=== PATIENT | female | born 1950 | race Caucasian/White ===

== ENCOUNTER 2017-02-08 10:18 | Emergency (ER) | payer MEDICARE, OTHER ==
[~2017-02-08] VITALS: Ht 157.5 cm; Wt 78.0 kg
[~2017-02-08 10:18] MED LIST: ALEN70TA30 PO; ASPI81TA3 PO; BENA10TA48 PO; MEVA40 PO; [UNRECOGNIZED DRUG - CODE] PO
[2017-02-08 10:23] VITALS: Ht 157.5 cm; Wt 78.0 kg
[2017-02-08] MEDS ORDERED: HYDROCODONE/APAP (10/325) TAB PO ONE (12:00)
--- NOTE | 2017-02-08 12:47 | RADRPT ---
PROCEDURE: Xray left ribs. CLINICAL INDICATION: Trauma due to a fall. Left rib pain. TECHNIQUE: Three views of the left ribs. Frontal and obliques. COMPARISON: None available FINDINGS: The osseous structures and surrounding soft tissues of the left rib cage are intact. No acute fract ure is seen. No radiopaque foreign body is identified. There are degenerative changes of the spine. IMPRESSION: 1. Degenerative changes of the spine. 2. Otherwise unremarkable left ribs x-ray series. RPTAT: QQ .Farshad Donaldson MD, MD Date Time Electronically viewed and signed by .Farshad Donaldson MD, on 02/08/2017 12:46 .R/
--- NOTE | 2017-02-08 13:03 | RADRPT ---
PROCEDURE: knee x-ray CLINICAL INDICATION: Knee pain. TECHNIQUE: AP, lateral and oblique tunnel views of the right knee were obtained. COMPARISON: None FINDINGS: No evidence of fracture or dislocation. Medial and lateral meniscal calcification compatible with ch ondrocalcinosis The medial, lateral, as well as patellofemoral knee joint compartments are well maintained. No joint effusion. Mild prepatellar soft tissue prominence. IMPRESSION: 1. No fracture or dislocation. Meniscal chondrocalcinosis. 2. No joint effusion. 3. Mild prepatellar soft tissue prominence suggestive of soft tissue swelling. Correlate with direc t inspection. RPTAT:AAJJ Physician Wes Date Time Electronically viewed and signed by Physician Wes on 02/08/2017 13:03 MANPREET/
--- NOTE | 2017-02-08 13:03 | RADRPT ---
PROCEDURE: XR Chest. CLINICAL INDICATION: Trauma . Chest pain TECHNIQUE: Single frontal chest x-ray. COMPARISON: 09/03/2015 FINDINGS: The lungs are clear of acute infiltrates, edema, effusions, or masses. Calcific atherosclerosis of t he aorta is present.. The cardiomediastinal silhouette is unremarkable. The osseous structures are intact. Fixation hardware noted in the right humeral head. IMPRESSION: No acute cardiopulmonary disease. RPTAT: GG .Terrence Bailey MD, MD Date Time Electronically viewed and signed by .Terrence Bailey MD, MD on 02/08/2017 13:03 .L/
[2017-02-08] MEDS ORDERED: IBUP800T25 PO (13:16)
[2017-02-08] MEDS ORDERED: HYDR-902 PO (13:16)
[2017-02-08] MEDS ORDERED: ONDANSETRON (ODT) 4 MG TAB ODT STA (13:23)
--- NOTE | 2017-02-08 13:27 | ERD ---
ER Documentation Chief Complaint Date/Time DATE: 02/08/17 TIME: 13:17 Chief Complaint FELL FROM CHAIR, HAS RIB PAIN AND LEFT KNEE PAIN HPI In her closet when the chair fell and she landed on her left knee and her left rib cage hit the arm of the chair. This happened yesterday. The pain is sharp worse with movement better with rest no loss of consciousness denies any headache neck ache shortness of breath abdominal pain vomiting dizziness pelvic pain or other extremity pain. ROS All systems reviewed and are negative except as per history of present illness. Medications Home Meds Active Scripts Ibuprofen* (Motrin*) 800 Mg Tab, 800 MG PO Q6H Y for PAIN AND OR ELEVATED TEMP, #30 TAB Prov:KAI MILAN DO 02/08/17 Hydrocodone/Acetaminophen ([place]han 10-325 Tablet) 1 Each Tablet, 1 TAB PO Q6H Y for PAIN, #20 TAB Prov:KAI MILAN. DO 02/08/17 Aspirin (Aspirin) 81 Mg Chew, 81 MG PO DAILY for 30 Days Prov:REANNA FINLEY [employer]T KNIFE FEEDER 10/28/14 Reported Medications Alendronate Sodium* (Fosamax*) 70 Mg Tablet, 70 MG PO Q7D, #4 TAB 09/03/15 Lovastatin (Lovastatin) 40 Mg Tablet, 40 MG PO HS, TAB 09/03/15 Benazepril Hcl* (Benazepril Hcl*) 10 Mg Tablet, 10 MG PO DAILY, #30 TAB 09/03/15 Multivits W-Ca,Fe,Other Min (Womens Multiple Vitamins) 1 Tab Tablet, 1 TAB PO DAILY 11/03/11 Allergies Allergies: Coded Allergies: No Known Allergies (Verified Allergy, Unknown, 09/03/15) PMhx/Soc History of Surgery: Yes (LEFT ELBOW, RIGHT SHOULDER, PROLAPSED UTERUS) Anesthesia Reaction: No Hx Neurological Disorder: Yes (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 Neck: Full range of motion. No meningismus, no lymphadenopathy. Resp: Clear to auscultation bilaterally, no wheezing, rhonchi, rales, there is tenderness to the left midaxillary rib cage around ribs 567 there is no crepitus Cardio: Regular rate and rhythm, no murmurs, S1 S2 present Abd: Soft, non tender x 4, non distended. Normal bowel sounds, no guarding or rebound, no pulsitile abdominal masses or bruits Skin: No petechiae or rashes, no ecchymosis , no maculopapular rash Back: No midline or flank tenderness Ext: No cyanosis, or edema, FROM x 4, normal inspection, neurovascularly intact x 4 tenderness to the left knee, full range of motion Neur: Awake and alert, STR 5/5 x 4, sensation intact x 4, no focal findings, cerebellum intact Psych: Normal Mood and Affect Results 24 hrs Current Medications Medications (Trade) Dose Ordered Sig/Maira Route PRN Reason Start Time Stop Time Status Last Admin Dose Admin Acetaminophen/ Hydrocodone Bitart (Doniphan (10/325)) 1 tab ONCE ONCE PO 02/08/17 12:00 02/08/17 12:01 DC 02/08/17 12:01 Procedures/MDM PROCEDURE: XR Chest. CLINICAL INDICATION: Trauma . Chest pain TECHNIQUE: Single frontal chest x-ray. COMPARISON: 09/03/2015 FINDINGS: The lungs are clear of acute infiltrates, edema, effusions, or masses. Calcific atherosclerosis of the aorta is present.. The cardiomediastinal silhouette is unremarkable. The osseous structures are intact. Fixation hardware noted in the right humeral head. IMPRESSION: No acute cardiopulmonary disease. RPTAT: GG .Terrence Bailey MD, MD Date Time Electronically viewed and signed by .Terrence Bailey MD, MD on 02/08/2017 13:03 .L/ CC: KAI MILAN DO PROCEDURE: knee x-ray CLINICAL INDICATION: Knee pain. TECHNIQUE: AP, lateral and oblique tunnel views of the right knee were obtained. COMPARISON: None FINDINGS: No evidence of fracture or dislocation. Medial and lateral meniscal calcification compatible with chondrocalcinosis The medial, lateral, as well as patellofemoral knee joint compartments are well maintained. No joint effusion. Mild prepatellar soft tissue prominence. IMPRESSION: 1. No fracture or dislocation. Meniscal chondrocalcinosis. 2. No joint effusion. 3. Mild prepatellar soft tissue prominence suggestive of soft tissue swelling. Correlate with direct inspection. RPTAT:AAJJ Physician Wes Date Time Electronically viewed and signed by Physician Wes on 02/08/2017 13:03 MANPREET/ CC: KAI MILAN DO PROCEDURE: Xray left ribs. CLINICAL INDICATION: Trauma due to a fall. Left rib pain. TECHNIQUE: Three views of the left ribs. Frontal and obliques. COMPARISON: None available FINDINGS: The osseous structures and surrounding soft tissues of the left rib cage are intact. No acute fracture is seen. No radiopaque foreign body is identified. There are degenerative changes of the spine. IMPRESSION: 1. Degenerative changes of the spine. 2. Otherwise unremarkable left ribs x-ray series. RPTAT: QQ .Farshad Donaldson MD, Date Time Electronically viewed and signed by .Farshad Donaldson MD, on 02/08/2017 12:46 .R/ CC: KAI MILAN DO Departure Diagnosis: Primary Impression: Contusion, knee Encounter type: initial encounter Laterality: unspecified laterality Qualified Code: S80.00XA - Contusion of knee, unspecified laterality, initial encounter Additional Impression: Rib injury Condition: Stable Patient Instructions: Rib Contusion KAI MILAN DO Feb 08, 2017 13:27
[2017-02-08] MEDS ORDERED: TRAM50TA2 PO (13:28)
[2017-02-08 13:42] VITALS: BP 124/65; PULSE 72; RESP 19; TEMP 98.3
== END 2017-02-08 13:42 | disposition home or self-care (01) ==
LOC: FTE 10:18
DX: S80.00XA Contusion of unspecified knee, initial encounter (principal); E11.9 Type 2 diabetes mellitus without complications; W07.XXXA Fall from chair, initial encounter; Z79.82 Long term (current) use of aspirin
CPT/HCPCS: 71010; 71100; 73562

== ENCOUNTER 2017-03-06 13:25 | Emergency (ER) | payer MEDICARE, OTHER ==
[~2017-03-06] VITALS: Ht 160 cm; Wt 79.0 kg
[~2017-03-06 13:25] MED LIST changes: +IBUP800T25 PO; +TRAM50TA2 PO
[2017-03-06 13:40] VITALS: Ht 160 cm; Wt 79.0 kg
[2017-03-06] MEDS ORDERED: KETOROLAC 30 MG INJ IV STA (15:09)
--- NOTE | 2017-03-06 15:20 | ERD ---
ER Documentation Chief Complaint Chief Complaint BACK PAIN, UPPER SINCE LAST NIGHT HPI 66 y/o female presents to the ED c/o acute onset of right flank pain last night. Pain is throbbing, 8/10, worsened by lateral rotation and cough. treatment attempted: Ibuprofen last night without improvement of his symptoms. The patient reports a fall a month ago. Denies limb weakness, numbness or incontinence. No urinary symptoms. no fever or chills ROS All systems reviewed and are negative except as per history of present illness. Medications Home Meds Active Scripts Ciprofloxacin Hcl* (Ciprofloxacin Hcl*) 500 Mg Tablet, 250 MG PO BID for 7 Days , TAB Prov:MILLER BOUDREAUX MD 03/06/17 Tramadol HCl (Tramadol HCl) 50 Mg Tablet, 50 MG PO Q6, #20 TAB Prov:KAI MILAN DO 02/08/17 Ibuprofen* (Motrin*) 800 Mg Tab, 800 MG PO Q6H Y for PAIN AND OR ELEVATED TEMP, #30 TAB Prov:KAI MILAN DO 02/08/17 Aspirin (Aspirin) 81 Mg Chew, 81 MG PO DAILY for 30 Days Prov:REANNA FINLEY NP 10/28/14 Reported Medications Alendronate Sodium* (Fosamax*) 70 Mg Tablet, 70 MG PO Q7D, #4 TAB 09/03/15 Lovastatin (Lovastatin) 40 Mg Tablet, 40 MG PO HS, TAB 09/03/15 Benazepril Hcl* (Benazepril Hcl*) 10 Mg Tablet, 10 MG PO DAILY, #30 TAB 09/03/15 Multivits W-Ca,Fe,Other Min (Womens Multiple Vitamins) 1 Tab Tablet, 1 TAB PO DAILY 11/03/11 Allergies Allergies: Coded Allergies: No Known Allergies (Verified Allergy, Unknown, 09/03/15) PMhx/Soc History of Surgery: Yes (LEFT ELBOW, RIGHT SHOULDER, PROLAPSED UTERUS) Anesthesia Reaction: No Hx Neurological Disorder: Yes (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 Neck: Full range of motion..~ No meningismus. Resp: Clear to auscultation bilaterally Cardio: Regular rate and rhythm, no murmurs Abd: Soft, non tender, non distended. Normal bowel sounds Skin: No petechiae or rashes Back: No midline or flank tenderness Ext: No cyanosis, or edema Neur: Awake and alert Psych: Normal Mood and Affect Result Diagram: 03/06/17 1534 03/06/17 1534 Results 24 hrs Laboratory Tests Test 03/06/17 15:34 03/06/17 15:40 White Blood Count 10.110^3/ul Red Blood Count 5.3710^6/ul Hemoglobin 13.4g/dl Hematocrit 42.8% Mean Corpuscular Volume 79.7fl Mean Corpuscular Hemoglobin 25.0pg Mean Corpuscular Hemoglobin Concent 31.3g/dl Red Cell Distribution Width 14.6% Platelet Count 68568^3/UL Mean Platelet Volume 10.3fl Neutrophils % 68.5% Lymphocytes % 21.6% Monocytes % 6.6% Eosinophils % 2.7% Basophils % 0.3% Nucleated Red Blood Cells % 0.0/100WBC Neutrophils # 6.910^3/ul Lymphocytes # 2.210^3/ul Monocytes # 0.710^3/ul Eosinophils # 0.310^3/ul Basophils # 0.010^3/ul Nucleated Red Blood Cells # 0.010^3/ul Sodium Level 142mmol/L Potassium Level 3.8mmol/L Chloride Level 101mmol/L Carbon Dioxide Level 32mmol/L Anion Gap 13 Blood Urea Nitrogen 15mg/dl Creatinine 0.54mg/dl Glucose Level 88mg/dl Calcium Level 9.9mg/dl Total Bilirubin 0.2mg/dl Direct Bilirubin 0.00mg/dl Indirect Bilirubin 0.2mg/dl Aspartate Amino Transf (AST/SGOT) 29IU/L Alanine Aminotransferase (ALT/SGPT) 42IU/L Alkaline Phosphatase 77IU/L Total Protein 8.5g/dl Albumin 4.3g/dl Globulin 4.20g/dl Albumin/Globulin Ratio 1.02 Urine Color YELLOW Urine Clarity SLIGHTLY CLOUDY Urine pH 7.0 Urine Specific [place] 1.009 Urine Ketones NEGATIVEmg/dL Urine Nitrite NEGATIVEmg/dL Urine Bilirubin NEGATIVEmg/dL Urine Urobilinogen NEGATIVEmg/dL Urine Leukocyte Esterase 1+Harsha/ul Urine Microscopic RBC 12/HPF Urine Microscopic WBC 16/HPF Urine Amorphous Crystals FEW/HPF Urine Hemoglobin 1+mg/dL Urine Glucose NEGATIVEmg/dL Urine Total Protein NEGATIVEmg/dl Current Medications Medications (Trade) Dose Ordered Sig/Maira Route PRN Reason Start Time Stop Time Status Last Admin Dose Admin Ketorolac Tromethamine (Toradol) 30 mg ONCE STAT IV 03/06/17 15:09 03/06/17 15:11 DC 03/06/17 15:13 Patient: POLA TRENT : 1950 Age: 66 Sex: F MR #: [id number] DOS: 03/06/17 1506 Ordering MD: MILLER BOUDREAUX MD Location: [facility] Room/Bed: PROCEDURE: CT abdomen and pelvis without contrast. CLINICAL INDICATION: Left flank pain. TECHNIQUE: CT scan of the abdomen and pelvis without contrast was performed and is reconstructed at 2.5 mm contiguous axial intervals from the dome of the diaphragm to the inferior pubic rami.. The patient was scanned without intravenous contrast. Sagittal and coronal reformatted images were obtained from the axial source images. The calculated radiation dose measures 343 mGy centimeters. The CTDI measures 87 mGy. Individualized dose optimization technique was used for the performance of this exam. This included 1. Automated exposure control. 2. Adjustment of the mA and / or kV according to the patient's size. 3. Use of iterative reconstructed technique. COMPARISON: None. FINDINGS: The lung bases are clear of any infiltrate or nodule. No effusion is seen. The liver is of normal size, contour and attenuation with no mass or ductal dilatation. No gallstones are visualized. No splenic, adrenal or pancreatic abnormalities present. Kidneys are of normal size and contour. No hydronephrosis, calculus or solid masses seen. There are either multiple sub centimeter parapelvic cysts or mild dilatation of the intrarenal collecting system of the left kidney. Ureters are of normal course and caliber with no stone. No bladder mass or stone is present. Atrophic postmenopausal uterus is normal. No adnexal mass is seen. There is no aneurysm. No adenopathy is present. No bowel mass or obstruction is present. The appendix is normal. There is diverticulosis. No phlegmon, ascites or pneumoperitoneum is visualized. The osseous structures are intact. Noted is central disc herniation at L3-L4 and a right paracentral disc herniation at L4-L5. IMPRESSION: No evidence of urolithiasis, diverticulitis or appendicitis. Question left parapelvic cysts versus mild dilatation of the intrarenal collecting system. Diverticulosis. Herniated discs L3-L4 and L4-L5. .Greg Pimentel MD, MD Date Time Electronically viewed and signed by .Greg Pimentel MD, MD on 03/06/2017 17: 23 Procedures/MDM 66 y/o female with acute onset of severe right flank pain. The patient has history of right renal cyst. Differential diagnosis include muscle spasm, nephrolithiasis, UTI, pyelonephritis, hemorrhagic cyst. Physical exam revealed vital signs stable, Rt CVA tenderness. Neurovascular intact. no clinical findings suggestive of acute process, no deformity, no edema, full ROM. Most likely musculoskeletal. Urine shows signs of infection with mild hematuria. CBC and CMP were in normal range. CT of the abdomen was positive for diverticular disease and herniated lumbar disc.The patient received Toradol IV with improvement of the pain. The patient will be DC home with a Rx for Ciprofloxacin and [place] #12. The patient was instructed to follow up with PCP in 2-4 days, if the doctor is unavailable and the symptoms persist or worsen, the patient should return to the hospital immediately. Departure Diagnosis: Primary Impression: UTI (urinary tract infection) Additional Impressions: Diverticulosis of colon without diverticulitis Herniated lumbar disc without myelopathy Additional Instructions: Thank you very much for allowing us to participate in your care. It was a pleasure seen you today here at [facility]. Please schedule a follow up appointment with your primary doctor in 2 days and bring all the information and prescriptions that we have given to you today. If the doctor is unavailable and the symptoms persist or worsen, the patient should return to the hospital immediately. MILLER BOUDREAUX MD Mar 06, 2017 15:20
[2017-03-06 15:42] LABS: BASOPHILS % 0.3 % (0.0-2.0); EOSINOPHILS # 0.3 10^3/ul (0.0-0.5); EOSINOPHILS % 2.7 % (0.0-7.0); HEMATOCRIT 42.8 % (37.0-47.0); HEMOGLOBIN 13.4 g/dl (12.0-16.0); LYMPHOCYTES # 2.2 10^3/ul (0.8-2.9); LYMPHOCYTES % 21.6 % (15.0-51.0); MEAN CORPUSCULAR HGB CONC 31.3 g/dl (32.0-37.0); MEAN CORPUSCULAR VOLUME 79.7 fl (82.0-101.0); MEAN PLATELET VOLUME 10.3 fl (7.4-10.4); MONOCYTE # 0.7 10^3/ul (0.3-0.9); MONOCYTES % 6.6 % (0.0-11.0); NEUTROPHIL # 6.9 10^3/ul (1.6-7.5); NEUTROPHILS % 68.5 % (39.0-77.0); PLATELET COUNT 246 10^3/UL (140-415); RED BLOOD COUNT 5.37 10^6/ul (4.20-5.40); RED CELL DISTRIBUTION WIDTH 14.6 % (11.5-14.5); WHITE BLOOD COUNT 10.1 10^3/ul (4.8-10.8)
[2017-03-06 15:58] LABS: BILIRUBIN,INDIRECT 0.2 mg/dl (0-1.1); BILIRUBIN,TOTAL 0.2 mg/dl (0.2-1.3); CALCIUM 9.9 mg/dl (8.4-10.2); CREATININE 0.54 mg/dl (0.44-1.00); POTASSIUM 3.8 mmol/L (3.5-5.1); TOTAL PROTEIN 8.5 g/dl (6.1-8.1)
[2017-03-06 16:02] LABS: ALBUMIN 4.3 g/dl (3.3-4.9); ALBUMIN/GLOBULIN RATIO 1.02
[2017-03-06 16:21] LABS: ADD UMIC YES; UR AMORPHOUS CRYSTAL FEW /HPF (NONE SEEN); UR ASCORBIC ACID 20 mg/dL (NEGATIVE); UR BILIRUBIN (Dip) NEGATIVE (NEGATIVE); UR BLOOD (Dip) 1+ mg/dL (NEGATIVE); UR CLARITY SLIGHTLY CLOUDY (CLEAR); UR COLOR YELLOW (YELLOW); UR GLUCOSE (Dip) NEGATIVE (NEGATIVE); UR KETONES (Dip) NEGATIVE (NEGATIVE); UR LEUKOCYTE ESTERASE (Dip) 1+ Leu/ul (NEGATIVE); UR NITRITE (Dip) NEGATIVE (NEGATIVE); UR RBC 12 /HPF (0-5); UR SPECIFIC GRAVITY (Dip) 1.009 (1.003-1.030); UR TOTAL PROTEIN (Dip) NEGATIVE (NEGATIVE); UR UROBILINOGEN (Dip) NEGATIVE (NEGATIVE)
[2017-03-06] MEDS ORDERED: CIPR500T4 PO (17:11)
--- NOTE | 2017-03-06 17:23 | RADRPT ---
PROCEDURE: CT abdomen and pelvis without contrast. CLINICAL INDICATION: Left flank pain. TECHNIQUE: CT scan of the abdomen and pelvis without contrast was performed and is reconstructed a t 2.5 mm contiguous axial intervals from the dome of the diaphragm to the inferior pubic rami.. The patient was scanned without intravenous contrast. Sagittal and coronal reformatted images were obt ained from the axial source images. The calculated radiation dose measures 343 mGy centimeters. The CTDI measures 87 mGy. Individualized dose optimization technique was used for the performance of this exam. This included 1. Automated exposure control. 2. Adjustment of the mA and / or kV according to the patient's size. 3. Use of iterative reconstructed technique. COMPARISON: None. FINDINGS: The lung bases are clear of any infiltrate or nodule. No effusion is seen. The liver is of normal size, contour and attenuation with no mass or ductal dilatation. No gallston es are visualized. No splenic, adrenal or pancreatic abnormalities present. Kidneys are of normal size and contour. No hydronephrosis, calculus or solid masses seen. There ar e either multiple sub centimeter parapelvic cysts or mild dilatation of the intrarenal collecting sy stem of the left kidney. Ureters are of normal course and caliber with no stone. No bladder mass or stone is present. Atrophic postmenopausal uterus is normal. No adnexal mass is seen. There is no aneurysm. No adenopathy is present. No bowel mass or obstruction is present. The appendix is normal. There is diverticulosis. No phle gmon, ascites or pneumoperitoneum is visualized. The osseous structures are intact. Noted is central disc herniation at L3-L4 and a right paracentral disc herniation at L4-L5. IMPRESSION: No evidence of urolithiasis, diverticulitis or appendicitis. Question left parapelvic cysts versus m ild dilatation of the intrarenal collecting system. Diverticulosis. Herniated discs L3-L4 and L4-L5. .Greg Pimentel MD, Date Time Electronically viewed and signed by .Greg Pimentel MD, MD on 03/06/2017 17:23 .A/
[2017-03-06] MEDS ORDERED: HYDR-906 PO (17:59)
--- NOTE | 2017-03-10 16:58 | EN ---
Date/Time of Note Date/Time of Note DATE: 03/10/17 TIME: 16:56 ER Progress Note Urine culture reviewed, no clinically significant, the patient should continue taking ciprofloxacin. Name: POLA TRENT Age/Sex: 66/F Attend Dr: MILLER MOREAU Acct: [id number] MR# : [id number] : 1950 Location: [facility] Admit: 03/06/17 Specimen: [id number] Status: Complete Alexandra: 03/06/17 Rcvd: 03/06 Source: FANNY BEJARANO Sp Descrip: Procedure Result Microbiology URINE CULTURE Final Organism 1 DIPTHEROIDS COLONY COUNT 10,000 - 20,000 CFU/ml Clinical susceptibiltiy testing standard for this organism have not been established. However, this organism has demonstrated in vitro growth inhibition to the following chemotherapeutic agents listed as susceptible. DIPTHEROID Zone Size RX --------- --- * AMPICILLIN R * CEFAZOLIN R * CEFOTAXIME R * CIPROFLOXACIN R * DOXYCYCLINE R * NITROFURANTOIN R * PENICILLIN R * VANCOMYCIN S * TRIMETHOPRIM/SULFAMETHOXAZOLE R ................................................................................ ............ Flags: Critical Hi = *H Critical Lo = *L Microbiology Abnormal = * Abnormal Hi = H Abnormal Lo = L Blood Bank Abnormal = * Susceptability Flags: S = Sensitive R = Resistant I = Intermediate END OF REPORT MILLER BOUDREAUX MD Mar 10, 2017 16:58
== END 2017-03-06 18:06 | disposition home or self-care (01) ==
LOC: FTE 13:25
DX: N39.0 Urinary tract infection, site not specified (principal); K57.30 Diverticulosis of large intestine without perforation or abscess without bleeding; M51.26 Other intervertebral disc displacement, lumbar region; E11.9 Type 2 diabetes mellitus without complications; Z79.82 Long term (current) use of aspirin
CPT/HCPCS: 74176; 80053; 81001; 85025; 87086; 96374; 99285; J1885

== ENCOUNTER 2018-12-09 11:26 | Emergency (ER) | payer MEDICARE, OTHER ==
[~2018-12-09] VITALS: Ht 165.1 cm; Wt 62.0 kg
[~2018-12-09 11:26] MED LIST changes: +ACET500C5 PO; -ALEN70TA30 PO; +ALEN70TA5 PO; +ASPI-831 PO; -ASPI81TA3 PO; +BEN50 PO; +BENA10TA4 PO; -BENA10TA48 PO; +CIPR500T4 PO; +ELIM TOP; +HC30CR25 TOP; +HYDR-4011 PO; -IBUP800T25 PO; +IBUP800T48 PO
[2018-12-09 11:31] VITALS: BP 140/64; PULSE 90; RESP 18; Ht 165.1 cm; Wt 62.0 kg
--- NOTE | 2018-12-09 12:22 | ERD ---
ER Documentation Chief Complaint Chief Complaint generalized body rash and back pain x 2 days HPI Patient is a 68 years old female with past medical history of prediabetes and past surgical history of right shoulder and left elbow presenting to the clinic for generalized pruritic body rash over entire body X 2 days and right mid back pain and right-sided rib pain status post fall since yesterday. She reports trying to scratch her rash while in her house when she fell and landed a stool with her back. Patient denies head trauma, loss of consciousness, confusion. Patient denies seeing any OTC medication. Patient reports the rash keeps coming up and admits to consistently scratching it. ROS All systems reviewed and are negative except as per history of present illness. Medications Home Meds Active Scripts Acetaminophen* (Tylophen*) 500 Mg Capsule, 1 CAP PO Q6H PRN for PAIN AND OR ELEVATED TEMP, #20 CAP Prov:SHANTE ULLOA MD 12/10/18 Tramadol HCl (Tramadol HCl) 50 Mg Tablet, 50 MG PO Q4 PRN for PAIN, #18 TAB Prov:SHANTE ULLOA MD 12/10/18 Ibuprofen* (Motrin*) 800 Mg Tab, 800 MG PO Q6H PRN for PAIN AND OR ELEVATED TEMP, #30 TAB Prov:FRANK MUNOZ PA-C 12/09/18 Diphenhydramine Hcl* (Benadryl*) 50 Mg Cap, 50 MG PO Q6H PRN for ITCHING/RASH, #30 CAP Prov:FRANK MUNOZ PA-C 12/09/18 Hydrocortisone* Topical (Hydrocortisone* Topical) 2.5%-28.3 Gm Cream..g., 1 APPLIC TOP BID, #1 TUB Prov:FRANK MUNOZ PA-C 12/09/18 Permethrin* (Elimite*) 5% Cr, 1 APPLIC TOP ONCE for 7 Days, TUB Prov:FRANK MUNOZ PA-C 12/09/18 Hydrocodone/Acetaminophen ([place] 5-325 Tablet) 1 Each Tablet, 1 TAB PO Q6H PRN for PAIN, #20 TAB Prov:MILLER BOUDREAUX MD 03/06/17 Ciprofloxacin Hcl* (Ciprofloxacin Hcl*) 500 Mg Tablet, 250 MG PO BID for 7 Days, TAB Prov:MILLER BOUDREAUX MD 03/06/17 Tramadol HCl (Tramadol HCl) 50 Mg Tablet, 50 MG PO Q6, #20 TAB Prov:KAI MILAN DO 02/08/17 Ibuprofen* (Motrin*) 800 Mg Tab, 800 MG PO Q6H PRN for PAIN AND OR ELEVATED TEMP, #30 TAB Prov:KAI MILAN DO 02/08/17 Aspirin (Aspirin) 81 Mg Chew, 81 MG PO DAILY for 30 Days Prov:REANNA FINLEY NP 10/28/14 Reported Medications Alendronate Sodium* (Fosamax*) 70 Mg Tablet, 70 MG PO Q7D, #4 TAB 09/03/15 Lovastatin (Lovastatin) 40 Mg Tablet, 40 MG PO HS, TAB 09/03/15 Benazepril Hcl* (Benazepril Hcl*) 10 Mg Tablet, 10 MG PO DAILY, #30 TAB 09/03/15 Multivits W-Ca,Fe,Other Min (Womens Multiple Vitamins) 1 Tab Tablet, 1 TAB PO DAILY 11/03/11 Allergies Allergies: Coded Allergies: No Known Allergies (Verified Allergy, Unknown, 09/03/15) PMhx/Soc History of Surgery: Yes (LEFT ELBOW, RIGHT SHOULDER, PROLAPSED UTERUS) Anesthesia Reaction: No Hx Neurological Disorder: Yes (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 PERRLA. No nystagmus. Resp: Clear to auscultation bilaterally Cardio: Regular rate and rhythm, no murmurs Skin: Multiple macular rash with excoriation noted on bilateral lower and upper extremities. No induration, no tenderness, no discharge noted. Back: Mid thoracic tenderness to right sided rib tenderness. Mild ecchymoses noted on mid back without skin perforation, laceration or active bleeding. Neur: Awake and alert. CNII-XII intact. Psych: Normal Mood and Affect Results 24 hrs Current Medications Medications Dose Sig/Maira Start Time Status Last (Trade) Ordered Route PRN Stop Time Admin Dose Reason Admin Hydroxyzine 50 mg ONCE ONCE 12/09/18 DC HCl IM 12:30 (Vistaril 12/09/18 12:31 Inj) Zinc 1 applic ONCE ONCE 12/09/18 DC 12/09/18 Acetate/ TOP 12:30 13:17 Diphenhydrami 12/09/18 12:31 ne (Benadryl 2% Cr) Ibuprofen 800 mg ONCE ONCE 12/09/18 DC 12/09/18 (Motrin) PO 12:30 13:15 12/09/18 12:31 Hydroxyzine 50 mg ONCE ONCE 12/09/18 DC 12/09/18 Pamoate PO 12:30 13:15 (Vistaril) 12/09/18 12:31 Procedures/MDM Patient was seen and evaluated for pruritic rash, mid back pain and right-sided rib pain status post fall. Rash most likely from possible insect bite versus mosquito bite versus scabies. Vistaril 50 mg p.o. and Benadryl 2% cream applied in ED. no signs of cellulitis on exam. Thoracic and right rib x-ray revealed: No evidence of acute fracture of the thoracic spine. No acute rib fracture identified. Patient stable ready for discharge. Patient will be discharged with Benadryl, hydrocortisone lotion, permethrin, and ibuprofen. Patient was advised to apply ice. Follow-up with PCP. Patient was advised to was all of her fabrics with hot water. Was advised to avoid scratching rash. Ice application. Departure Diagnosis: Primary Impression: Rash and nonspecific skin eruption Additional Impression: Back pain Back pain location: thoracic back pain Chronicity: acute Back pain laterality: right Qualified Codes: M54.6 - Pain in thoracic spine Condition: Stable Patient Instructions: Self-Care for Skin Rashes Referrals: [facility] Additional Instructions: Patient advised to return to the ED immediately for new or worsening symptoms. Patient advised to follow up with primary care provider in the next 24-48 hours. Patient verbalized understanding and agrees with treatment plan and course of action. If patient has no primary care they may follow up with [facility] + [address] [address] or [facility] [address] [place] [address] or [facility] [address] [place] [address] Comments Patient evaluated with HOME HEALTH CARE COORDINATOR/PA, agree with assessment and plan FRANK Jack PA-C Dec 09, 2018 12:22 ADRIANNE LOPEZ DO Dec 13, 2018 11:55
[2018-12-09] MEDS ORDERED: IBUPROFEN 800 MG TAB PO ONE (12:30)
[2018-12-09] MEDS ORDERED: hydrOXYzine HCL 100 MG INJ IM ONE (12:30)
[2018-12-09] MEDS ORDERED: DIPHENHYDRAMINE 2%/ZINC 28.4 GM CR TOP ONE (12:30)
[2018-12-09] MEDS ORDERED: hydrOXYzine PAMOATE 25 MG CAP PO ONE (12:30)
== END 2018-12-09 15:02 | disposition home or self-care (01) ==
LOC: FTE 11:26
DX: S20.229A Contusion of unspecified back wall of thorax, initial encounter (principal); R21 Rash and other nonspecific skin eruption; E11.9 Type 2 diabetes mellitus without complications; W18.39XA Other fall on same level, initial encounter; Y92.89 Other specified places as the place of occurrence of the external cause; Z79.82 Long term (current) use of aspirin
CPT/HCPCS: 71100; 72072; 99284; J3410

== ENCOUNTER 2018-12-10 15:16 | Emergency (ER) | payer MEDICARE, OTHER ==
[~2018-12-10] VITALS: Ht 165.1 cm; Wt 64.8 kg
[~2018-12-10 15:16] MED LIST changes: -ACET500C5 PO
[2018-12-10 15:18] VITALS: Ht 165.1 cm; Wt 64.8 kg
[2018-12-10] MEDS ORDERED: KETOROLAC 30 MG INJ IM STA (16:07)
[2018-12-10] MEDS ORDERED: ACET500C5 PO (18:09)
[2018-12-10] MEDS ORDERED: TRAM50TA2 PO (18:09)
[2018-12-10 18:20] VITALS: BP 116/65; PULSE 80; RESP 18
--- NOTE | 2018-12-10 18:20 | ERD ---
ER Documentation Chief Complaint Chief Complaint bug bites , back pain , seen here for same yesterday, pain meds not working HPI 68-year-old female presents with pain in her right lower back. She was seen here yesterday after mechanical fall and hitting her right rib area. She had a x-ray of her thoracic spine and rib which were read as normal. She was originally having some itchy skin lesions and fell trying to scratch. The itching from her skin lesions is improved. She is here primarily her back pain which is causing stiffness and pain with walking. She denies deficits, head injury, neck pain, weakness, fevers, shortness of breath or chest pain. She has a history of hypertension. ROS All systems reviewed and are negative except as per history of present illness. Medications Home Meds Active Scripts Acetaminophen* (Tylophen*) 500 Mg Capsule, 1 CAP PO Q6H PRN for PAIN AND OR ELEVATED TEMP, #20 CAP Prov:SHANTE ULLOA MD 12/10/18 Tramadol HCl (Tramadol HCl) 50 Mg Tablet, 50 MG PO Q4 PRN for PAIN, #18 TAB Prov:SHANTE ULLOA MD 12/10/18 Ibuprofen* (Motrin*) 800 Mg Tab, 800 MG PO Q6H PRN for PAIN AND OR ELEVATED TEMP, #30 TAB Prov:FRANK MUNOZ PA-C 12/09/18 Diphenhydramine Hcl* (Benadryl*) 50 Mg Cap, 50 MG PO Q6H PRN for ITCHING/RASH, #30 CAP Prov:FRANK MUNOZ PA-C 12/09/18 Hydrocortisone* Topical (Hydrocortisone* Topical) 2.5%-28.3 Gm Cream..g., 1 APPLIC TOP BID, #1 TUB Prov:FRANK MUNOZ PA-C 12/09/18 Permethrin* (Elimite*) 5% Cr, 1 APPLIC TOP ONCE for 7 Days, TUB Prov:FRANK MUNOZ PA-C 12/09/18 Hydrocodone/Acetaminophen ([place] 5-325 Tablet) 1 Each Tablet, 1 TAB PO Q6H PRN for PAIN, #20 TAB Prov:MILLER BOUDREAUX MD 03/06/17 Ciprofloxacin Hcl* (Ciprofloxacin Hcl*) 500 Mg Tablet, 250 MG PO BID for 7 Days, TAB Prov:VALDESLUICLEANING,MILLER MD 03/06/17 Tramadol HCl (Tramadol HCl) 50 Mg Tablet, 50 MG PO Q6, #20 TAB Prov:KAI MILANEduardo DO 02/08/17 Ibuprofen* (Motrin*) 800 Mg Tab, 800 MG PO Q6H PRN for PAIN AND OR ELEVATED TEMP, #30 TAB Prov:KAI MILANEduardo DO 02/08/17 Aspirin (Aspirin) 81 Mg Chew, 81 MG PO DAILY for 30 Days Prov:REANNA FINLEY NP 10/28/14 Reported Medications Alendronate Sodium* (Fosamax*) 70 Mg Tablet, 70 MG PO Q7D, #4 TAB 09/03/15 Lovastatin (Lovastatin) 40 Mg Tablet, 40 MG PO HS, TAB 09/03/15 Benazepril Hcl* (Benazepril Hcl*) 10 Mg Tablet, 10 MG PO DAILY, #30 TAB 09/03/15 Multivits W-Ca,Fe,Other Min (Womens Multiple Vitamins) 1 Tab Tablet, 1 TAB PO DAILY 11/03/11 Allergies Allergies: Coded Allergies: No Known Allergies (Verified Allergy, Unknown, 09/03/15) PMhx/Soc History of Surgery: Yes (LEFT ELBOW, RIGHT SHOULDER, PROLAPSED UTERUS) Anesthesia Reaction: No Hx Neurological Disorder: Yes (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 Neck: Full range of motion. No meningismus. Resp: Clear to auscultation bilaterally Cardio: Regular rate and rhythm, no murmurs Abd: Soft, non tender, non distended. Normal bowel sounds Skin: No petechiae or rashes Back: No midline or flank tenderness Ext: No cyanosis, or edema Neur: Awake and alert Psych: Normal Mood and Affect Results 24 hrs Current Medications Medications Dose Sig/Maira Start Time Status Last (Trade) Ordered Route PRN Stop Time Admin Dose Reason Admin Ketorolac 30 mg ONCE STAT 12/10/18 DC 12/10/18 Tromethamine IM 16:07 16:30 (Toradol) 12/10/18 16:08 Procedures/MDM ROCEDURE: CT lumbar spine without contrast CLINICAL INDICATION: Low back pain status post fall TECHNIQUE: CT scan of the lumbar spine was performed on a high-resolution multi-detector CT scanner. No IV contrast was administered. Coronal and sagittal reformatted images were obtained from the axial source images. Images were reviewed on a high-resolution PACS workstation. Exam CTDI = 10.32 mGy and the DLP = 281.5 mGy-cm. DICOM images are available. One or more of the following dose reduction techniques were used: Automated exposure control. Adjustment of the mA and/or kV according to patient size. Use of iterative reconstruction technique. COMPARISON: CT abdomen and pelvis 03/06/2017. FINDINGS: There is preservation of the normal lumbar lordosis. Alignment remains intact. There is 3 mm left lateral translation of L4 and L5. There is mildly displaced right transverse process fracture of L1. There is a nondisplaced right transv erse process fracture of L2. The vertebral body heights are maintained. The paraspinous soft tissues are unremarkable. No mass, hematoma, or other soft tissue abnormality is seen. There is sigmoid diverticulosis. Scattered aortoiliac vascular calcifications are present. L1-L2: The disc height is maintained. Homogeneous disc calcification is present. 2 mm circumferential disc bulge and mild facet arthropathy are seen at this level. The central canal and neural foramina are adequately patent. L2-L3: There is mild disc height loss. 3 mm disc bulge, mild to moderate facet arthropathy and ligamentum flavum thickening are seen at this level. There is right greater than left mild neural foraminal stenosis. The central canal remains adequately patent. L3-L4: The disc height is maintained. 3 mm disc bulge, mild to moderate facet arthropathy and ligamentum flavum thickening are seen at this level. There is moderate right and mild to moderate left neural foraminal stenosis. There is mild central canal stenosis. L4-L5: There is mild to moderate disc height loss. 4 mm disc bulge with prominent right extraforaminal component, moderate facet arthropathy and ligamentum flavum thickening are seen at this level. There is moderate central canal stenosis. There is effacement of the lateral recesses. There is moderate to severe right and mild to moderate left neural foraminal stenosis. L5-S1: The disc height is maintained. 2 mm disc bulge and mild facet arthropathy are seen at this level. There is mild bilateral neural foraminal stenosis. The central canal is adequately patent. IMPRESSION: 1. Mildly displaced right transverse process fracture of L1. Nondisplaced right transverse process fracture of L2. 2. No traumatic malalignment. 3. Moderate lumbar spondylosis/degenerative enthesopathy more evident at L4-L5, as described above. RPTAT: HHO .Rangel Melchor MD, MD Date Time Electronically viewed and signed by .Rangel Melchor MD, on 12/10/2018 17:58 Patient presents with right lower back pain after mechanical fall with transverse process fractures of L1-L2. She has no signs of neurologic deficit, epidural abscess, chest pain, shortness of breath, additional concerning signs or symptoms. Patient is well-appearing and amatory with minimal signs of significant pain. She was treated with Toradol 30 mg IM and will be treated with tramadol, Tylenol, recommendations for primary care follow-up and return precautions for fevers, vomiting, chest pain, weakness, deficits, new worsening symptoms. The patient was stable with no new complaints during the ER course. Clinically, there is no current evidence to suggest meningitis, sepsis, acute abdomen, pneumonia, stroke, acute coronary syndrome, pulmonary embolism, aortic dissection or any other emergent condition appearing to require further evaluation or hospitalization. Patient counseled regarding my diagnostic impression and care plan. Prior to discharge all questions answered. Pt agrees with treatment plan and understands strict return precautions. Pt is instructed to follow up with primary care provider within 24-48 hours. Precautionary instructions provided including instructions to return to the ER if not improving or for any worsening or changing symptoms or concerns. Disclaimer: Inadvertent spelling and grammatical errors are likely due to EHR/dictation software use and do not reflect on the overall quality of patient care. Also, please note that the electronic time recorded on this note does not necessarily reflect the actual time of the patient encounter. Departure Diagnosis: Primary Impression: Closed fracture of transverse process of lumbar vertebra Encounter type: initial encounter Qualified Codes: S32.009A - Unspecified fracture of unspecified lumbar vertebra, initial encounter for closed fracture Additional Impression: Back pain Back pain location: low back pain Chronicity: acute Back pain laterality: right Sciatica presence: without sciatica Qualified Codes: M54.5 - Low back pain Condition: Stable Patient Instructions: Neck or Spine Fractures (Broken Neck or Spine) Additional Instructions: There is some fractures noted an area of pain not seen on x-ray. Fractures of this part of the spine did not involve spinal cord and usually no treatment. See primary doctor for follow-up. Recheck otherwise for fevers, weakness, new or worsening symptoms. Recommend spinal specialist to evaluate fracture and treatment. Likely need authorization from primary doctor for specialist visit. SHANTE ULLOA MD Dec 10, 2018 18:20
== END 2018-12-10 18:24 | disposition home or self-care (01) ==
LOC: FTE 15:16
DX: S32.018A Other fracture of first lumbar vertebra, initial encounter for closed fracture (principal); S32.028A Other fracture of second lumbar vertebra, initial encounter for closed fracture; E11.9 Type 2 diabetes mellitus without complications; W01.198A Fall on same level from slipping, tripping and stumbling with subsequent striking against other object, initial encounter; Y92.9 Unspecified place or not applicable; Z79.82 Long term (current) use of aspirin
CPT/HCPCS: 72131; 96372; 99285; J1885

== ENCOUNTER 2019-03-06 19:00 | Inpatient (IN) | payer MEDICARE, OTHER ==
[~2019-03-06] VITALS: Ht 165.1 cm; Wt 64.6 kg
[~2019-03-06 19:00] MED LIST changes: +ACET500C5 PO; -BENA10TA4 PO; +BENA10TA6 PO; +LOVA20TA PO
[2019-03-06 19:18] VITALS: Ht 165.1 cm; Wt 64.6 kg
[2019-03-06] MEDS ORDERED: ACETAMINOPHEN 325 MG TAB PO ONE (21:00)
[2019-03-06] MEDS ORDERED: SODIUM CHLORIDE 0.9% 1L BAG IV* STA (22:48)
[2019-03-06] MEDS ORDERED: CEFEPIME 2GM/50 ML (PMX) 50 ML IVPB STA (22:57)
[2019-03-07] MEDS ORDERED: ACETAMINOPHEN 325 MG TAB PO PRN ×2 (00:30→06:30)
[2019-03-07] MEDS ORDERED: ONDANSETRON 4 MG INJ IV PRN ×2 (00:30→06:30)
[2019-03-07] MEDS ORDERED: VANCOMYCIN 1 GM (PMX) 250 ML IVPB ONE (01:00)
[2019-03-07 05:05] VITALS: BP 142/73; PULSE 104; RESP 18
[2019-03-07] MEDS ORDERED: NACL 0.9% 3 ML SYG IV SCH (06:30)
[2019-03-07] MEDS ORDERED: ALBUTEROL/IPRATROPIUM (NEB) 3 ML AMP HHN PRN (06:30)
[2019-03-07] MEDS ORDERED: VANCOMYCIN IV PER PHARMACY XX SCH (06:30)
[2019-03-07] MEDS ORDERED: HYDROCODONE/APAP (5/325) TAB PO PRN ×2 (06:30)
[2019-03-07] MEDS ORDERED: traMADol 50 MG TAB PO PRN (06:30)
[2019-03-07] MEDS ORDERED: DEXAMETHASONE 4 MG/ML 1 ML INJ IV SCH (06:30)
[2019-03-07] MEDS ORDERED: IBUPROFEN 800 MG TAB PO PRN (06:30)
[2019-03-07] MEDS ORDERED: GLUCOSE GEL 15 GRAM TUBE PO PRN ×2 (07:00)
[2019-03-07] MEDS ORDERED: GLUCAGON 1 MG INJ IM PRN (07:00)
[2019-03-07] MEDS ORDERED: GLUCOSE GEL 15 GRAM TUBE BUCCAL PRN (07:00)
[2019-03-07] MEDS ORDERED: DEXTROSE 50% 50 ML SYRINGE IV PRN ×2 (07:00)
[2019-03-07] MEDS: SOD CHLORIDE 0.9% 1,000 ML IV SCH ×3 (07:06→18:26)
[2019-03-07 07:50] VITALS: BP 135/65; PULSE 99; RESP 18
[2019-03-07] MEDS: CEFEPIME 1GM/50 ML (PMX) 50 ML IVPB SCH ×2 (08:19→20:28)
[2019-03-07] MEDS: BENAZEPRIL 10 MG TAB PO SCH (08:20)
[2019-03-07] MEDS: INSULIN ASPART [NOVOLOG] 3 ML PEN SC SCH ×4 (08:21→20:42)
[2019-03-07] MEDS: HEPARIN 5,000 UNIT/1 ML VIAL SC SCH ×2 (08:21→20:42)
[2019-03-07] MEDS: INSULIN GLARGINE [LANTus] (100 UNITS/ML) SYG SC SCH (08:22)
[2019-03-07] MEDS: GABAPENTIN 300 MG CAP PO SCH ×2 (08:23→20:28)
[2019-03-07] MEDS: VANCOMYCIN 500 MG (PMX) 100 ML IVPB SCH (11:47)
[2019-03-07 14:21] VITALS: BP 140/72; PULSE 94; RESP 18
[2019-03-07] MEDS ORDERED: ATORVASTATIN 10 MG TAB ONE (19:55)
[2019-03-07 20:00] VITALS: BP 143/63; PULSE 92; RESP 19
[2019-03-07] MEDS: ATORVASTATIN 10 MG TAB PO SCH (20:28)
[2019-03-08] MEDS: VANCOMYCIN 500 MG (PMX) 100 ML IVPB SCH ×2 (00:10→12:59)
[2019-03-08] MEDS: ACCU-CHEK XX SCH (02:00)
[2019-03-08 08:00] VITALS: BP 121/58; PULSE 92; RESP 18
[2019-03-08] MEDS: INSULIN ASPART [NOVOLOG] 3 ML PEN SC SCH ×4 (08:00→20:58)
[2019-03-08] MEDS: HEPARIN 5,000 UNIT/1 ML VIAL SC SCH ×2 (08:15→20:53)
[2019-03-08] MEDS: INSULIN GLARGINE [LANTus] (100 UNITS/ML) SYG SC SCH (08:15)
[2019-03-08] MEDS: CEFEPIME 1GM/50 ML (PMX) 50 ML IVPB SCH (08:16)
[2019-03-08] MEDS: GABAPENTIN 300 MG CAP PO SCH ×2 (08:17→20:48)
[2019-03-08] MEDS: BENAZEPRIL 10 MG TAB PO SCH (09:00)
[2019-03-08] MEDS ORDERED: POTASSIUM CHLORIDE (SR) 20 MEQ TAB PO STA (12:37)
[2019-03-08] MEDS: SOD CHLORIDE 0.9% 1,000 ML IV SCH ×2 (13:29→20:59)
[2019-03-08 14:00] VITALS: BP 137/73; PULSE 98; RESP 18
[2019-03-08] MEDS ORDERED: FLUCONAZOLE 200 MG TAB PO ONE (14:30)
[2019-03-08 20:00] VITALS: BP 135/69; PULSE 99; RESP 18
[2019-03-08] MEDS ORDERED: VANCOMYCIN 500 MG (PMX) 100 ML IVPB SCH (20:00)
[2019-03-08] MEDS: ATORVASTATIN 10 MG TAB PO SCH (20:48)
[2019-03-08] MEDS: AMOXICILLIN 500 MG CAP PO SCH (22:05)
[2019-03-09 02:00] VITALS: BP 134/71; PULSE 103; RESP 18
[2019-03-09] MEDS: ACCU-CHEK XX SCH (02:00)
[2019-03-09] MEDS: AMOXICILLIN 500 MG CAP PO SCH ×2 (05:21→13:41)
[2019-03-09] MEDS: SOD CHLORIDE 0.9% 1,000 ML IV SCH (07:00)
[2019-03-09 08:00] VITALS: BP 141/72; PULSE 101; RESP 18
[2019-03-09] MEDS: INSULIN ASPART [NOVOLOG] 3 ML PEN SC SCH ×2 (08:00→12:00)
[2019-03-09] MEDS: INSULIN GLARGINE [LANTus] (100 UNITS/ML) SYG SC SCH (08:11)
[2019-03-09] MEDS: HEPARIN 5,000 UNIT/1 ML VIAL SC SCH (08:11)
[2019-03-09] MEDS: GABAPENTIN 300 MG CAP PO SCH (08:12)
[2019-03-09] MEDS: BENAZEPRIL 10 MG TAB PO SCH (08:14)
[2019-03-09 14:00] VITALS: BP 138/76; PULSE 96; RESP 20
== END 2019-03-09 16:50 | disposition home or self-care (01) | DRG 872 ==
LOC: FTE 19:00 → 5EC 03-07 00:04
PROVIDERS: ADMIT Internal Medicine; ATTEND Hospitalist
DX: A41.9 Sepsis, unspecified organism (principal); E11.65 Type 2 diabetes mellitus with hyperglycemia; E78.5 Hyperlipidemia, unspecified; I10 Essential (primary) hypertension; G57.02 Lesion of sciatic nerve, left lower limb; M25.561 Pain in right knee; Z79.82 Long term (current) use of aspirin; Z79.4 Long term (current) use of insulin; Z86.73 Personal history of transient ischemic attack (TIA), and cerebral infarction without residual deficits
CPT/HCPCS: 36415; 71045; 72141; 72146; 72158; 73510; 73700; 74176; 80053; 80061; 80202; 81001; 82550; 82962; 83036; 83605; 83735; 84100; 84484; 85025; 85610; 85651; 85730; 86140; 87086; 87400; 93005; 93971; 96374; 97162; 97167; J0692; J1100; J1644; J1815; J3370; J7030